=== PATIENT | female | born 2000 | race Caucasian/White ===

== ENCOUNTER 2018-08-24 16:30 | Emergency (ER) | payer BC ==
[2018-08-24 16:59] VITALS: BP 119/69
--- NOTE | 2018-08-24 18:26 | UC ---
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 " Here with a friend of hers from school. -She has significant history of sinus infections, "I get them all the time" uses amoxicillin for that because she is limited in what she can take. Amoxicillin works well. Denies . Has mild wheezing, positive history of asthma. Not uncontrolled. Albuterol was helpful. She does not need anything further than that she states. -She started getting drainage out of her right eye today. She prefers not to use antibiotic eyedrops if not necessary due to antibiotic allergies. She does were contacts although she is not wearing them now. She is continuing to use eye makeup and as a matter fact used her friend's mascara the past couple of days. - History of Current Complaint Chief Complaint: UCGeneralIllness Stated Complaint: SINUSES,RIGHT EYE COMPLAINT Time Seen by Provider: 08/24/18 16:56 Hx Last Menstrual Period: 08/07/18 Pain Intensity: 0 - Allergies/Home Medications Allergies/Adverse Reactions: Allergies Allergy/AdvReac Type Severity Reaction Status Date / Time moxifloxacin [From Moxeza] Allergy Severe eyes bleed Verified 08/24/18 17:00 Quinolones Allergy Severe Anaphylatic Verified 08/24/18 17:00 Shock Home Medications: Home Medications Control Pill 08/24/18 [History] PMH/Surg Hx/FS Hx/Imm Hx Previously Healthy: Yes - Surgical History Surgical History: None - Family History Known Family History: Positive: Diabetes - Social History Alcohol Use: Weekly Substance Use Type: None Smoking Status (MU): Never Smoked Tobacco Review of Systems Constitutional: Negative Skin: Negative Eyes: Eye Redness ENT: Sinus Congestion, Sinus Pain/Tenderness Respiratory: Negative Cardiovascular: Negative Gastrointestinal: Negative Genitourinary: Negative Motor: Negative Neurovascular: Negative Musculoskeletal: Negative Neurological: Negative Psychological: Negative Is Patient Immunocompromised?: No All Other Systems Reviewed And Are Negative: Yes Physical Exam Triage Information Reviewed: Yes Appearance: Well-Appearing, No Pain Distress, Well-Nourished Vital Signs: Initial Vital Signs Temp 98.8 F 08/24/18 16:54 Pulse 98 08/24/18 16:54 Resp 18 08/24/18 16:54 BP 119/69 08/24/18 16:54 Pulse Ox 99 08/24/18 16:54 Vital Signs Reviewed: Yes Eyes: Positive: Other: - Mild right injection of conjunctiva. No active discharge. Extraocular movements intact. Pupils equal round reactive to light. No foreign body. ENT: Positive: Pharynx normal, TMs normal, Sinus tenderness - Bilateral maxillary. negative frontal. Neck exam: Normal Neck: Positive: Supple, Nontender, No Lymphadenopathy Respiratory Exam: Normal Respiratory: Positive: Lungs clear, Normal breath sounds, No respiratory distress, No accessory muscle use. Negative: Crackles, Rhonchi, Stridor, Wheezing Cardiovascular: Positive: RRR Abdomen Description: Positive: Nontender, Soft Musculoskeletal Exam: Normal Neurological Exam: Normal Skin Exam: Normal UC Diagnostic Evaluation - Laboratory O2 Sat by Pulse Oximetry: 99 Respiratory Course/Dx - Course Course Of Treatment: amox 875mgs po bid x 10d. -probiotioc. -declines abx eye gtt d/ta llergy hx. prefers to use OTC reffresh PM gtts. can come back if sx worsen or not imporved for abx gtts. -cold compresses. -no contacts or eye make up to avoid re-contamination - Differential Dx/Diagnosis Differential Diagnosis/HQI/PQRI: Asthma, Bronchitis, Lower Resp Infection, Sinusitis Provider Diagnoses: Sinusitis, rt conjcuntivitis Discharge - Sign-Out/Discharge Documenting (check all that apply): Patient Departure All imaging exams completed and their final reports reviewed: No Studies - Discharge Plan Condition: Stable Disposition: HOME Prescriptions: Amoxicillin PO (*) [Amoxicillin 875 MG (*)] 875 mg PO BID #20 tab Patient Education Materials: Sinusitis (ED), Conjunctivitis (ED) Referrals: No Primary Care Phys,NOPCP [Primary Care Provider] - Additional Instructions: -Make sure to take a probiotic daily while on antibiotics to help prevent a potential complication of antibiotic use called c diff. Some well known brands that can be found OTC are [employer], [employer]ou and [employer]. Make sure to complete the entire prescription unless advised otherwise by your health care provider. -Make sure to use backup control for the rest of the pack because antibiotics can decrease the efficacy of your control pill. -Do not wear contacts or eye makeup until your eye symptoms have cleared up. You can use the refresh [id number] drops. If symptoms do not improve or persist, you should get antibiotic eyedrops. -You can follow-up here if your symptoms increase or persist. - Billing Disposition and Condition Condition: STABLE Disposition: Home
== END 2018-08-24 18:40 | disposition home or self-care (01) ==
LOC: UCCORT 16:30
DX: J32.9 Chronic sinusitis, unspecified (principal); H10.9 Unspecified conjunctivitis; J45.909 Unspecified asthma, uncomplicated; Z88.1 Allergy status to other antibiotic agents
CPT/HCPCS: 99202; G0463

== ENCOUNTER 2019-12-26 14:55 | Emergency (ER) | payer BC ==
[2019-12-26 15:03] VITALS: BP 131/72
--- NOTE | 2019-12-26 16:20 | UC ---
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 Pt states the only swelling she is having is in her eye lids. " -tmax 99.5 + asthma hx - ahs albuterol - it does help + allergies - hasnt taken anti-histamine in a long time -eye are not itchy or watery. -has mild occas cheek pain x ~ 1 wk. not consistnet. only mild. -no ST/no ear pain. -no wheezing. 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 -deneis preganncy - History of Current Complaint Chief Complaint: UCGeneralIllness Stated Complaint: SINUSES Time Seen by Provider: 12/26/19 16:05 Hx Last Menstrual Period: 12/23/19 Pain Intensity: 0 - Allergies/Home Medications Allergies/Adverse Reactions: Allergies Allergy/AdvReac Type Severity Reaction Status Date / Time moxifloxacin [From Moxeza] Allergy Severe eyes bleed Verified 12/26/19 14:57 Quinolones Allergy Severe Anaphylatic Verified 12/26/19 14:57 Shock Home Medications: Home Medications Dextroamphetamine/Amphetamine [Adderall 10 mg-] 10 mg PO BID 12/26/19 [History Confirmed 12/26/19] Norethindrone-E.estradiol-Iron [Blisovi 24 Fe 1-20 mg-Mcg(24)] 1 tab PO DAILY [History Confirmed 12/26/19] PMH/Surg Hx/FS Hx/Imm Hx Previously Healthy: Yes - Surgical History Surgical History: None - Family History Known Family History: Positive: Diabetes - Social History Alcohol Use: Weekly Substance Use Type: Marijuana Smoking Status (MU): Never Smoked Tobacco Review of Systems All Other Systems Reviewed And Are Negative: Yes Constitutional: Positive: Negative Skin: Positive: Negative. Negative: Rash Eyes: Positive: Negative. Negative: Blurred Vision, Diplopia, Drainage, Eye Redness, Photophobia ENT: Positive: Other - feels swelling of her upper cheeks. Negative: Sore Throat, Ear Ache, Nasal Discharge, Sinus Congestion, Sinus Pain/Tenderness Respiratory: Positive: Cough. Negative: Shortness Of Breath Cardiovascular: Positive: Negative. Negative: Palpitations, Chest Pain Gastrointestinal: Positive: Negative. Negative: Abdominal Pain, Vomiting, Diarrhea, Nausea Genitourinary: Positive: Negative Motor: Positive: Negative Neurovascular: Positive: Negative Musculoskeletal: Positive: Negative Neurological/Mental Status: Positive: Negative Psychological: Positive: Negative Is Patient Immunocompromised?: No Physical Exam Triage Information Reviewed: Yes Appearance: Well-Appearing, No Pain Distress, Well-Nourished - no cough during entire encounter Vital Signs: Initial Vital Signs Temp 97.9 F 12/26/19 14:59 Pulse 85 12/26/19 14:59 Resp 14 12/26/19 14:59 BP 131/72 12/26/19 14:59 Pulse Ox 98 12/26/19 14:59 Eye Exam: Normal Eyes: Positive: Conjunctiva Clear. Negative: Discharge ENT: Positive: Pharynx normal, TMs normal, Uvula midline. Negative: Nasal congestion, Nasal drainage, TM bulging, TM dull, TM red, Tonsillar swelling, Tonsillar exudate, Sinus tenderness Neck exam: Normal Neck: Positive: Supple, Nontender, No Lymphadenopathy Respiratory Exam: Normal Respiratory: Positive: Chest non-tender, Lungs clear, Normal breath sounds, No respiratory distress, No accessory muscle use. Negative: Crackles, Rhonchi, Stridor, Wheezing Cardiovascular Exam: Normal Cardiovascular: Positive: RRR, No Murmur Abdominal Exam: Normal Abdomen Description: Positive: Nontender, Soft Musculoskeletal Exam: Normal Neurological Exam: Normal Psychological Exam: Normal Skin Exam: Normal Respiratory Course/Dx - Course Course Of Treatment: no e/o bactreial infection. swelling of cheeks started today. no urticarial sx. no angioedema sx. no wheezing, lungs clear -viral vs allergic, supportive treatment - Differential Dx/Diagnosis Differential Diagnosis/HQI/PQRI: Asthma, Bronchitis, Sinusitis Provider Diagnosis: Upper respiratory infection Discharge ED - Sign-Out/Discharge Documenting (check all that apply): Patient Departure All imaging exams completed and their final reports reviewed: No Studies - Discharge Plan Condition: Stable Disposition: HOME Patient Education Materials: Upper Respiratory Infection (ED) Referrals: No Primary Care Phys,NOPCP [Primary Care Provider] - Additional Instructions: Please follow up at [facility] in 1 week. You should be seen sooner if your symptoms change, worsen or persist. Ibuprofen, advil or tylenol can be helpful for symptoms. Restarting OTC anti-histamine would be helpful as well. Watch for fevers, persistent pain over your cheeks. - Billing Disposition and Condition Condition: STABLE Disposition: Home
== END 2019-12-26 16:30 | disposition home or self-care (01) ==
LOC: UCCORT 14:55
DX: J06.9 Acute upper respiratory infection, unspecified (principal); J45.909 Unspecified asthma, uncomplicated; Z88.1 Allergy status to other antibiotic agents; Z88.8 Allergy status to other drugs, medicaments and biological substances
CPT/HCPCS: 99212; G0463